=== PATIENT | male | born 1955 | race Caucasian/White ===

== ENCOUNTER 2024-02-10 06:15 | Day surgery (SDC) | payer MEDICARE, OTHER, SELFPAY | END 2024-02-10 09:16 | disposition home or self-care (01) | LOC: GI 06:15 | PROVIDERS: ATTENDING PHYSICIAN Internal Medicine Gastroenterology | DX: Z12.11 Encounter for screening for malignant neoplasm of colon (principal); D12.0 Benign neoplasm of cecum; D12.1 Benign neoplasm of appendix; D12.4 Benign neoplasm of descending colon; K64.8 Other hemorrhoids; Z86.0100 Personal history of colon polyps, unspecified | CPT/HCPCS: 45385; 45380; 88305 ==

== ENCOUNTER → 2024-06-19 07:43 | Outpatient (REF) | payer MEDICARE, OTHER, SELFPAY | LOC: RAD 07:43 | PROVIDERS: ATTENDING PHYSICIAN Internal Medicine; FAMILY PHYSICIAN Chiropractor | DX: I70.0 Atherosclerosis of aorta (principal); M54.50 Low back pain, unspecified | CPT/HCPCS: 76770 ==